=== PATIENT | male | born 1955 | race Caucasian/White ===

== ENCOUNTER 2016-12-30 16:30 | Emergency (ER) | payer SELFPAY ==
[~2016-12-30] VITALS: Ht 188 cm; Wt 81.8 kg
[2016-12-30 16:31] VITALS: BP 171/99; PULSE 113; RESP 15; TEMP 98.2; O2SAT 96
[2016-12-30] MEDS ORDERED: LISI-519 PO (16:56)
[2016-12-30] MEDS ORDERED: IBUP800T23 PO (17:02)
[2016-12-30] MEDS ORDERED: MAGICADU2 SWISH-SPIT (17:02)
[2016-12-30] MEDS ORDERED: PERI0.126 SWISH-SPIT (17:02)
[2016-12-30] MEDS ORDERED: AMOX500C PO (17:02)
--- NOTE | 2016-12-30 17:02 | PD ---
HPI Chief Complaint: Oral / Dental Pain or Problem Time Seen by Provider: 16:59 Travel History International Travel<30 days: No Contact w/Intl Traveler<30days: No Traveled to known affect area: No History of Present Illness HPI 61-year-old male presents to the emergency Department with complaint of left lower dental pain 1 month. Says he knows he needs to have the tooth removed but has been unable to afford dental care. Requesting antibiotics. Denies fever, chills, nausea, vomiting. Denies facial edema or erythema. Pain is worse with eating. Has used Anbesol with minimal relief. No known allergies. No other modifying factors or associated signs and symptoms. PFSH Past Medical History Tetanus Vaccination: Unknown Influenza Vaccination: Yes Past Surgical History Other Surgery: Yes (spinal fusion) Social History Alcohol Use: Yes (2-3 beers ) Tobacco Use: Yes (1 ppd ) Substance Use: No Allergies-Medications (Allergen,Severity, Reaction): Coded Allergies: No Known Allergies (Unverified , 12/30/16) Reported Meds & Prescriptions Reported Meds & Active Scripts Active Amoxicillin 500 Mg Cap 500 Mg PO BID 10 Days Ibuprofen 800 Mg Tab 800 Mg PO Q6HR PRN Magic Mouthwash Adult Liq (Multi-Ingredient Mouthwash/Gargle) 120 Ml Susp 5 Ml SWISH-SPIT Q3HR PRN Each 5mL contains: Nystatin 200,000units, Diphenhydramine 4.25mg, Viscous Lidocaine 10mg, Wong syrup 0.8 mL Peridex Liq (Chlorhexidine Gluconate (Mouth) Liq) 0.12% Soln 15 Ml SWISH-SPIT BID 10 Days Reported Lisinopril 5 Mg Tab 5 Mg PO DAILY Review of Systems Except as stated in HPI: all other systems reviewed are Neg Physical Exam Narrative GENERAL: Well-nourished, well-developed patient, in no acute distress; afebrile , nontoxic-appearing SKIN: Warm and dry. HEAD: Atraumatic. Normocephalic. No facial edema, erythema, tenderness on palpation. No lymphadenopathy. EYES: Pupils equal and round. No scleral icterus. No injection or drainage. ENT: Mucosa pink and moist. Airway patent. MOUTH: Mucous membranes moist, no lesions, tongue and gums appear normal. Left lower tooth number tooth #20 with tenderness on palpation, decay, and large dental cavity. Surrounding gingiva is without erythema, edema, drainage. No obvious abscess noted. NECK: Trachea midline. No lymphadenopathy. CARDIOVASCULAR: Regular rate. RESPIRATORY: No accessory muscle use. GASTROINTESTINAL: Flat. MUSCULOSKELETAL: No obvious deformities. No clubbing. No cyanosis. No edema. NEUROLOGICAL: Awake and alert. Oriented 3. No obvious cranial nerve deficits. Motor grossly within normal limits. Normal speech. PSYCHIATRIC: Appropriate mood and affect; insight and judgment normal. Data Data Last Documented VS Vital Signs Date Time Temp Pulse Resp B/P Pulse Ox O2 Delivery O2 Flow Rate FiO2 12/30/16 16:31 98.2 113 15 171/99 96 Orders Ibuprofen (Motrin) (12/30/16 17:15) [facility] Medical Decision Making Medical Screen Exam Complete: Yes Emergency Medical Condition: Yes Medical Record Reviewed: Yes Differential Diagnosis Dentalgia, infected dental caries, gingivitis, dental abscess Narrative Course 61-year-old male with dentalgia and dental caries to left lower tooth #20. Patient is afebrile and nontoxic-appearing. He denies fever, chills, nausea, vomiting. Heart rate recheck on physical exam was approximately 90bpm. ibuprofen administered in the ER. Emergency dental information sheet provided. Instructed patient to follow up with dentist and he verbalized understanding and agreement with treatment plan. Amoxicillin, Magic mouthwash, Peridex mouth rinse, ibuprofen prescribed for home. Patient is medically cleared and stable for discharge. Discussed reasons to return to the emergency department. Instructed patient to follow up with primary care provider. Patient agrees with treatment plan. The patients vital signs are stable and the patient is stable for outpatient follow-up and treatment. Patient discharged home, stable and in no acute distress. Diagnosis Primary Impression: Dentalgia Additional Impression: Dental caries Referrals: Dentist Primary Care Physician Patient Instructions: Dental Abscess (ED), Dental Caries (ED), General Instructions, Toothache (ED) Departure Forms: Tests/Procedures, Work Release Enter return to work date: Dec 31, 2016 Additional Instructions: Complete full course of antibiotics Ibuprofen as directed and as needed to reduce pain and inflammation Use Magic mouthwash rinse as directed and as needed to decrease pain Use Peridex as directed for oral hygiene Warm compresses to the affected area Follow-up with dentist Follow-up with primary care provider Return to emergency department immediately with worsening of symptoms Med/Other Pt SpecificInfo: Prescription(s) given Scripts Amoxicillin 500 Mg [id number] Mg PO BID 10 Days Ref 0 Prov:Cinda Mohan 12/30/16 Ibuprofen 800 Mg [id number] Mg PO Q6HR PRN (PAIN) #30 TAB Ref 0 Prov:Cinda Mohan 12/30/16 Edqfwrqa-Oowypnlqunmoorv-Etrxooudv Liq (Magic Mouthwash Adult Liq)120 Ml Susp5 Ml SWISH-SPIT Q3HR PRN (PAIN SCALE 1 TO 10) #120 ML Ref 0 Each 5mL contains: Nystatin 200,000units, Diphenhydramine 4.25mg, Viscous Lidocaine 10mg, Wong syrup 0.8 mL Prov:Cinda Mohan 12/30/16 Chlorhexidine Gluconate (Mouth) Liq (Peridex Liq)0.12% Soln15 Ml SWISH-SPIT BID 10 Days Ref 0 Prov:Cinda Mohan 12/30/16 Disposition: 01 DISCHARGE HOME Condition: Stable Cinda Mohan Dec 30, 2016 17:02
[2016-12-30] MEDS ORDERED: IBUPROFEN 800 MG TAB PO ONE (17:15)
== END 2016-12-30 17:22 | disposition home or self-care (01) ==
LOC: NEPB 16:30
DX: K08.89 Other specified disorders of teeth and supporting structures (principal); K02.9 Dental caries, unspecified; F17.210 Nicotine dependence, cigarettes, uncomplicated
CPT/HCPCS: 99282

== ENCOUNTER 2017-06-27 15:42 | Emergency (ER) | payer SELFPAY ==
[~2017-06-27] VITALS: Ht 188 cm; Wt 85.0 kg
[~2017-06-27 15:42] MED LIST: AMOX500C PO; IBUP800T23 PO; LISI-519 PO; MAGICADU2 SWISH-SPIT; PERI0.126 SWISH-SPIT
[2017-06-27 15:47] VITALS: BP 171/97; PULSE 95; RESP 15; TEMP 98.2; O2SAT 98
== END 2017-06-27 19:58 | disposition left against medical advice (07) ==
LOC: NED 15:42
DX: M54.9 Dorsalgia, unspecified (principal); Z53.21 Procedure and treatment not carried out due to patient leaving prior to being seen by health care provider
CPT/HCPCS: 99281

== ENCOUNTER 2018-02-07 12:20 | Emergency (ER) | payer SELFPAY ==
[~2018-02-07] VITALS: Ht 188 cm; Wt 85.0 kg
[~2018-02-07 12:20] MED LIST changes: +IBUP1TAB7 PO; -IBUP800T23 PO
[2018-02-07 12:29] VITALS: BP 163/96; PULSE 116; RESP 16; TEMP 98.4; O2SAT 97
== END 2018-02-07 17:00 | disposition left against medical advice (07) ==
LOC: NED 12:20
DX: G89.18 Other acute postprocedural pain (principal); Z53.21 Procedure and treatment not carried out due to patient leaving prior to being seen by health care provider
CPT/HCPCS: 99281